=== PATIENT | male | born 1950 | race Caucasian/White ===

== ENCOUNTER 2018-12-28 16:45 | Outpatient (RCR) | payer MEDICARE, OTHER, SELFPAY ==
--- NOTE | 2018-12-16 18:39 | PT.OIE ---
Current Diagnoses Unilateral primary osteoarthritis, right knee (12/16/18) Unspecified internal derangement of left knee (12/16/18) Pain in right knee (12/16/18) Stiffness of right knee, not elsewhere classified (12/16/18) Provider Visit Care Team Role Provider Type Suresh Virkzachary Primary Care Provider Non-Staff Specialty: Internal Medicine Address: [address] [place] [address], [address], [place], [address] Fax: Email: Raymond Lima MD Attending Provider Non-Staff Specialty: Orthopedics Address: [address] [place] [address], [id number] Email: Physical Therapy Initial Evaluation PT-OP-A Visit Information Start: 12/16/18 18:08 Freq: Status: Active Protocol: Document 12/16/18 16:45 DCW (Rec: 12/16/18 18:36 DCW [id number]) Out-Patient Physical Therapy Visit Information Visit Information Visit Type Initial Evaluation Visit Start Time 16:45 Visit Stop Time 17:45 Total Visit Minutes 60 Visit Number 1 Number of NURSE AIDE Visits 0 Evaluation Information Evaluation Date 12/16/18 PT-OP-B Current Condition Start: 12/16/18 18:08 Freq: Status: Active Protocol: Document 12/16/18 16:45 DCW (Rec: 12/16/18 18:36 DCW [id number]) Current Condition History of Current Condition Onset Date 12/10/18 Current Complaints Right knee stiffness and pain s/p R TKA History of Current Condition Pt is a 68 year old male presenting one week s/p R TKA secondary to OA with failure of conservative treatment. Additionally, pt reports his left knee was scoped, but he is currently having no ongoing issues with his left knee, and reports it feels better than it has in years. Pt also admits to a history of low back pain secondary to a defect resulting in an L5-S1 Spondylolisthesis. Following surgery, pt admits he has not had a great deal of pain, averaging about a 3/10. Has been walking with a FWW, displaying an antalgic right gait pattern. Prior Treatments and Tests R TKA L Arthroscopic Treatment Goals Patient/Caregiver Goals Pt would like to get back to my normal daily life, which includes hiking, golfing, and fishing. Prior Functional Status Baseline Function- ADL's Independent Baseline Function- Mobility Independent Current Functional Impairments (Reported) Functional Limitations- ADL's Unable to participate in normal activities such as hiking, fishing, and golf. Functional Limitations- Mobility/Gait Ambulates using FWW with right antalgic gait pattern PT-OP-C Subjective Start: 12/16/18 18:08 Freq: Status: Active Protocol: Document 12/16/18 16:45 DCW (Rec: 12/16/18 18:36 DCW [id number]) Patient Questionnaires Lower Extremity Functional Scale LEFS Score 12/80 = 15% LEFS Impairment 80 to 99% Impaired (Score 1-16 ) OP-PT Pain Assessment Pain Assessment Grid Paper Pain Assessment Grid Completed Yes Location Right Knee Intensity 3 Scale Used Numeric (1 - 10) Description Aching Pressure Tightness Throbbing Frequency Intermittent Pain Alleviating Factors Cold PT-OP-F Manual Assessment Start: 12/16/18 18:08 Freq: Status: Active Protocol: Document 12/16/18 16:45 DCW (Rec: 12/16/18 18:36 DCW [id number]) Manual Assessments Soft Tissue Assessment Soft Tissue Mobility Assessment Edema/Joint effusion along right knee limiting mobility PT-OP-G Mobility & Gait Start: 12/16/18 18:08 Freq: Status: Active Protocol: Document 12/16/18 16:45 DCW (Rec: 12/16/18 18:36 DCW [id number]) OP Gait Assessment Gait Gait Assistance Required: Independent Assistive Devices Assistive Device Front Wheeled Walker Gait Deviations General Gait Pattern Antalgic Decreased Stride Length Factors Limiting Gait Function Factors Limiting Gait Function Limited Range of Motion Pain PT-OP-J Posture/Palpation/Skin Start: 12/16/18 18:36 Freq: Status: Active Protocol: Document 12/16/18 16:45 DCW (Rec: 12/16/18 18:39 DCW [id number]) Skin Assessment Circumference Measurement 10 cm Inferior Location 10 cm inferior to right joint line Measurement (Centimeters) 41.3 Comments L 38.7 cm 10 cm Superior Location 10 cm superior to right joint line Measurement (Centimeters) 49.0 Comments L 43.5 cm Joint Line Location R knee joint line Measurement (Centimeters) 47.1 Comments L joint line 41.8 cm PT-OP-K Range of Motion Start: 12/16/18 18:08 Freq: Status: Active Protocol: Document 12/16/18 16:45 DCW (Rec: 12/16/18 18:36 DCW [id number]) Knee Goniometric Range of Motion Knee Measured in Degrees Right Patient Position Supine Flexion Active (degrees) 82 Flexion Passive (degrees) 84 Extension Active (degrees) 8 Extension Passive (degrees) 6 Left Patient Position Supine Flexion Active (degrees) 120 Flexion Passive (degrees) 120 Extension Active (degrees) 5 Extension Passive (degrees) 5 Knee ROM Limitations Knee ROM Limitations Soft Tissue Tightness Bony Restriction Muscle Weakness Pain Swelling PT-OP-M Strength Start: 12/16/18 18:08 Freq: Status: Active Protocol: Document 12/16/18 16:45 DCW (Rec: 12/16/18 18:36 DCW [id number]) Knee Strength Knee Manual Muscle Testing Right Flexion (S2) 4+ Good+ Extension (L3) 4 Good Left Flexion (S2) 5 Normal Extension (L3) 5 Normal PT-OP-Q Treatments Start: 12/16/18 18:08 Freq: Status: Active Protocol: Document 12/16/18 16:45 DCW (Rec: 12/16/18 18:36 DCW [id number]) Cardio Equipment Recumbent Bicycle Duration (Minutes) 8 Resistance 0 Seat Position 14 Other Unable to perform full rotation Therapeutic Exercises Sitting Exercises Knee extension stretch Sitting Exercise Name Knee extension stretch Side right PT-OP-R Modalities Start: 12/16/18 18:08 Freq: Status: Active Protocol: Document 12/16/18 16:45 DCW (Rec: 12/16/18 18:36 DCW [id number]) Electric Stimulation Electric Stimulation Interferential Current (IFC) Body Location R knee Duration (Minutes) 10 Cycle Continuous Patient Position Sitting PT-OP-T Assessment and Plan Start: 12/16/18 18:08 Freq: Status: Active Protocol: Document 12/16/18 16:45 DCW (Rec: 12/16/18 18:36 DCW [id number]) Physical Therapy Assessment Rehab Potential Rehabilitation Potential Excellent Evaluation Complexity Number of Personal Factors/Comorbidities 1-2 Number of Body Systems Impaired 1-2 Clinical Presentation at Evaluation Stable Impairments Impairments Edema Functional Activities Functional Mobility Gait Pain ROM Soft Tissue Mobility Strength Other Concerns Barriers to Rehabilitation Low back pain/ Spondylolisthesis, HTN, DM II Goals Four Impairment Joint Effusion Fci Goal (LTG) Right circumfrential measurements equal to left LTG Duration 02/13/19 Three Impairment Limited ROM Short Term Goal (STG) Pt passive and active R knee extension to 0? STG Duration 01/13/19 Fci Goal (LTG) Pt passive and active R knee flexion to 120? LTG Duration 02/13/19 Two Impairment Pt unable to participate in normal activities Certified Breastfeeding Educator Goal (LTG) Pt to return to golf with no increased pain LTG Duration 02/13/19 One Impairment Pt does not have an appropriate home exercise program Short Term Goal (STG) Pt to be independent and compliant with an appropriate HEP STG Duration 01/13/19 Assessment Summary Assessment Pt presents as generally expected one week s/p R TKA, displays joint effusion, stiffness, mild pain and weakness. Pt very interested in rehab process, and motivated to put maximal effort into rehabilitation. Rehab may be limited by pt's history of L5-S1 Spondylolisthesis, recent L knee arthroscopy, and history of HTN and DM II, however he will likely have a fairly standard post-TKA rehab course . Pt currently demonstrates excellent extension, only lacking 8? from neutral, but is slightly behind expected flexion, at 82? active. Physical Therapy Plan Frequency and Duration Frequency of Treatment 2x/Week Duration of Treatment 12 weeks Plan of Care Start Date 12/16/18 Plan of Care End Date 03/10/19 Therapeutic Interventions Therapeutic Interventions Aquatic Therapy Gait Training Home Exercise Program Joint Mobilizations Manual Therapy Neuromuscular Re-education Patient/Caregiver Education Self-Care/Home Management Soft Tissue Mobilization Taping Therapeutic Activities Therapeutic Exercises Modalities Cold Pack/Ice Massage Electric Stimulation Hot Packs Ultrasound Next Visit Focus/Plan Next Note Type Treatment Note Next Visit Plan ROM/Flexibility, Post-op TherEx
--- NOTE | 2018-12-16 18:40 | PT.OPPOC ---
Current Diagnoses Unilateral primary osteoarthritis, right knee (12/16/18) Unspecified internal derangement of left knee (12/16/18) Pain in right knee (12/16/18) Stiffness of right knee, not elsewhere classified (12/16/18) Provider Visit Care Team Role Provider Type Suresheboni Virkzachary Primary Care Provider Non-Staff Specialty: Internal Medicine Address: [address] [place] [address], [address], [place], [address] Fax: Email: Raymond Lima MD Attending Provider Non-Staff Specialty: Orthopedics Address: [address] [place] [address] [place], [address] Email: Plan Of Care PT-OP-T Assessment and Plan Start: 12/16/18 18:08 Freq: Status: Active Protocol: Document 12/16/18 16:45 DCW (Rec: 12/16/18 18:36 DCW [id number]) Physical Therapy Assessment Rehab Potential Rehabilitation Potential Excellent Evaluation Complexity Number of Personal Factors/Comorbidities 1-2 Number of Body Systems Impaired 1-2 Clinical Presentation at Evaluation Stable Impairments Impairments Edema Functional Activities Functional Mobility Gait Pain ROM Soft Tissue Mobility Strength Other Concerns Barriers to Rehabilitation Low back pain/ Spondylolisthesis, HTN, DM II Goals Four Impairment Joint Effusion Affiliate Marketing Coordinator Goal (LTG) Right circumfrential measurements equal to left LTG Duration 02/13/19 Three Impairment Limited ROM Short Term Goal (STG) Pt passive and active R knee extension to 0? STG Duration 01/13/19 Affiliate Marketing Coordinator Goal (LTG) Pt passive and active R knee flexion to 120? LTG Duration 02/13/19 Two Impairment Pt unable to participate in normal activities Long-Term Goal (LTG) Pt to return to golf with no increased pain LTG Duration 02/13/19 One Impairment Pt does not have an appropriate home exercise program Short Term Goal (STG) Pt to be independent and compliant with an appropriate HEP STG Duration 01/13/19 Assessment Summary Assessment Pt presents as generally expected one week s/p R TKA, displays joint effusion, stiffness, mild pain and weakness. Pt very interested in rehab process, and motivated to put maximal effort into rehabilitation. Rehab may be limited by pt's history of L5-S1 Spondylolisthesis, recent L knee arthroscopy, and history of HTN and DM II, however he will likely have a fairly standard post-TKA rehab course . Pt currently demonstrates excellent extension, only lacking 8? from neutral, but is slightly behind expected flexion, at 82? active. Physical Therapy Plan Frequency and Duration Frequency of Treatment 2x/Week Duration of Treatment 12 weeks Plan of Care Start Date 12/16/18 Plan of Care End Date 03/10/19 Therapeutic Interventions Therapeutic Interventions Aquatic Therapy Gait Training Home Exercise Program Joint Mobilizations Manual Therapy Neuromuscular Re-education Patient/Caregiver Education Self-Care/Home Management Soft Tissue Mobilization Taping Therapeutic Activities Therapeutic Exercises Modalities Cold Pack/Ice Massage Electric Stimulation Hot Packs Ultrasound Next Visit Focus/Plan Next Note Type Treatment Note Next Visit Plan ROM/Flexibility, Post-op TherEx Plan of Care Dates Plan of Care Start Date 12/16/18 Plan of Care End Date 03/10/19 Please Sign and Return: I have reviewed this Plan of Care and certify that the skilled therapy services above are required to meet the patient?s needs. Physician Signature Date Printed Name and Credentials Clinical Instructor Signature Printed Name and Credentials
--- NOTE | 2018-12-18 11:41 | PT.OTN ---
Current Diagnoses Unilateral primary osteoarthritis, right knee (12/18/18) Unspecified internal derangement of left knee (12/18/18) Physical Therapy Treatment Note PT-OP-A Visit Information Start: 12/16/18 18:08 Freq: Status: Active Protocol: Document 12/18/18 11:22 SA (Rec: 12/18/18 11:41 SA [id number]) Out-Patient Physical Therapy Visit Information Visit Information Visit Type Treatment Note Visit Start Time 09:55 Visit Stop Time 10:40 Total Visit Minutes 45 Visit Number 2 Number of INTERPRETER Visits 1 PT-OP-B Current Condition Start: 12/16/18 18:08 Freq: Status: Active Protocol: Document 12/16/18 16:45 DCW (Rec: 12/16/18 18:36 DCW [id number]) Current Condition History of Current Condition Onset Date 12/10/18 Current Complaints Right knee stiffness and pain s/p R TKA History of Current Condition Pt is a 68 year old male presenting one week s/p R TKA secondary to OA with failure of conservative treatment. Additionally, pt reports his left knee was scoped, but he is currently having no ongoing issues with his left knee, and reports it feels better than it has in years. Pt also admits to a history of low back pain secondary to a defect resulting in an L5-S1 Spondylolisthesis. Following surgery, pt admits he has not had a great deal of pain, averaging about a 3/10. Has been walking with a FWW, displaying an antalgic right gait pattern. Prior Treatments and Tests R TKA L Arthroscopic Treatment Goals Patient/Caregiver Goals Pt would like to get back to my normal daily life, which includes hiking, golfing, and fishing. Prior Functional Status Baseline Function- ADL's Independent Baseline Function- Mobility Independent Current Functional Impairments (Reported) Functional Limitations- ADL's Unable to participate in normal activities such as hiking, fishing, and golf. Functional Limitations- Mobility/Gait Ambulates using FWW with right antalgic gait pattern PT-OP-C Subjective Start: 12/16/18 18:08 Freq: Status: Active Protocol: Document 12/18/18 11:22 SA (Rec: 12/18/18 11:41 SA [id number]) OP-PT Subjective Patient Comments Patient Comments Pt reports low pain levels and only taking Tylonol for pain. Doing post op exercises at home with good tolerance. Using FWW intermittently and trying to decrease use. PT-OP-F Manual Assessment Start: 12/16/18 18:08 Freq: Status: Active Protocol: Document 12/16/18 16:45 DCW (Rec: 12/16/18 18:36 DCW [id number]) Manual Assessments Soft Tissue Assessment Soft Tissue Mobility Assessment Edema/Joint effusion along right knee limiting mobility PT-OP-G Mobility & Gait Start: 12/16/18 18:08 Freq: Status: Active Protocol: Document 12/16/18 16:45 DCW (Rec: 12/16/18 18:36 DCW [id number]) OP Gait Assessment Gait Gait Assistance Required: Independent Assistive Devices Assistive Device Front Wheeled Walker Gait Deviations General Gait Pattern Antalgic Decreased Stride Length Factors Limiting Gait Function Factors Limiting Gait Function Limited Range of Motion Pain PT-OP-J Posture/Palpation/Skin Start: 12/16/18 18:36 Freq: Status: Active Protocol: Document 12/16/18 16:45 DCW (Rec: 12/16/18 18:39 DCW [id number]) Skin Assessment Circumference Measurement 10 cm Inferior Location 10 cm inferior to right joint line Measurement (Centimeters) 41.3 Comments L 38.7 cm 10 cm Superior Location 10 cm superior to right joint line Measurement (Centimeters) 49.0 Comments L 43.5 cm Joint Line Location R knee joint line Measurement (Centimeters) 47.1 Comments L joint line 41.8 cm PT-OP-K Range of Motion Start: 12/16/18 18:08 Freq: Status: Active Protocol: Document 12/16/18 16:45 DCW (Rec: 12/16/18 18:36 DCW [id number]) Knee Goniometric Range of Motion Knee Measured in Degrees Right Patient Position Supine Flexion Active (degrees) 82 Flexion Passive (degrees) 84 Extension Active (degrees) 8 Extension Passive (degrees) 6 Left Patient Position Supine Flexion Active (degrees) 120 Flexion Passive (degrees) 120 Extension Active (degrees) 5 Extension Passive (degrees) 5 Knee ROM Limitations Knee ROM Limitations Soft Tissue Tightness Bony Restriction Muscle Weakness Pain Swelling PT-OP-M Strength Start: 12/16/18 18:08 Freq: Status: Active Protocol: Document 12/16/18 16:45 DCW (Rec: 12/16/18 18:36 DCW [id number]) Knee Strength Knee Manual Muscle Testing Right Flexion (S2) 4+ Good+ Extension (L3) 4 Good Left Flexion (S2) 5 Normal Extension (L3) 5 Normal PT-OP-Q Treatments Start: 12/16/18 18:08 Freq: Status: Active Protocol: Document 12/18/18 11:22 SA (Rec: 12/18/18 11:41 [email or web address]) Cardio Equipment Recumbent Stepper (Sci-Fit) Duration (Minutes) 7 Resistance 4 Other warm up Therapeutic Exercises Supine Exercises SAQs Side right Resistance 0 Equipment Used foam roll Reps/Minutes 5 x 15 Isometric Heel digs Side right Reps/Minutes 5 x 12 Sitting Exercises calf stretch with belt Side right Reps/Minutes 30 x 3 Seated knee flexion stretch Side right Reps/Minutes 30 x 4 Knee extension stretch Sitting Exercise Name Knee extension stretch Side right Reps/Minutes 1' x 2 Manual Therapy Treatment Soft Tissue Mobilization R knee/edema management Body Location R knee Mobilization Type Myofascial Release Rolling Strumming Intensity/Depth Moderate Body Position Supine PT-OP-R Modalities Start: 12/16/18 18:08 Freq: Status: Active Protocol: Document 12/18/18 11:22 SA (Rec: 12/18/18 11:41 [email or web address]) Electric Stimulation Electric Stimulation Interferential Current (IFC) Body Location R knee Duration (Minutes) 15 Cycle Continuous Patient Position Sitting Combined With Heat/Cold Cold Pack PT-OP-T Assessment and Plan Start: 12/16/18 18:08 Freq: Status: Active Protocol: Document 12/18/18 11:22 SA (Rec: 12/18/18 11:41 [id number]) Physical Therapy Assessment Assessment Summary Assessment Pt given Heel digs and SAQs for HEP, he is already doing quad sets and knee flexion stretching at home. Progressing with gait and using FWW less. Physical Therapy Plan Next Visit Focus/Plan Next Note Type Treatment Note Next Visit Plan Progress ROM and strengthening ar tolerated.
--- NOTE | 2018-12-23 17:36 | PT.OTN ---
Current Diagnoses Unilateral primary osteoarthritis, right knee (12/23/18) Unspecified internal derangement of left knee (12/23/18) Physical Therapy Treatment Note PT-OP-A Visit Information Start: 12/16/18 18:08 Freq: Status: Active Protocol: Document 12/23/18 17:25 [facility] (Rec: 12/23/18 17:35 [facility] [id number]) Out-Patient Physical Therapy Visit Information Visit Information Visit Type Treatment Note Visit Start Time 13:45 Visit Stop Time 14:35 Total Visit Minutes 45 Visit Number 3 Number of ANALYTICAL LEAD Visits 0 PT-OP-B Current Condition Start: 12/16/18 18:08 Freq: Status: Active Protocol: Document 12/16/18 16:45 DCW (Rec: 12/16/18 18:36 DCW [id number]) Current Condition History of Current Condition Onset Date 12/10/18 Current Complaints Right knee stiffness and pain s/p R TKA History of Current Condition Pt is a 68 year old male presenting one week s/p R TKA secondary to OA with failure of conservative treatment. Additionally, pt reports his left knee was scoped, but he is currently having no ongoing issues with his left knee, and reports it feels better than it has in years. Pt also admits to a history of low back pain secondary to a defect resulting in an L5-S1 Spondylolisthesis. Following surgery, pt admits he has not had a great deal of pain, averaging about a 3/10. Has been walking with a FWW, displaying an antalgic right gait pattern. Prior Treatments and Tests R TKA L Arthroscopic Treatment Goals Patient/Caregiver Goals Pt would like to get back to my normal daily life, which includes hiking, golfing, and fishing. Prior Functional Status Baseline Function- ADL's Independent Baseline Function- Mobility Independent Current Functional Impairments (Reported) Functional Limitations- ADL's Unable to participate in normal activities such as hiking, fishing, and golf. Functional Limitations- Mobility/Gait Ambulates using FWW with right antalgic gait pattern PT-OP-C Subjective Start: 12/16/18 18:08 Freq: Status: Active Protocol: Document 12/23/18 17:25 [facility] (Rec: 12/23/18 17:35 [facility] [id number]) OP-PT Subjective Patient Comments Patient Comments Pt reports he isn't using AD at this time. He wants to go over his HEP. PT-OP-F Manual Assessment Start: 12/16/18 18:08 Freq: Status: Active Protocol: Document 12/16/18 16:45 DCW (Rec: 12/16/18 18:36 DCW [id number]) Manual Assessments Soft Tissue Assessment Soft Tissue Mobility Assessment Edema/Joint effusion along right knee limiting mobility PT-OP-G Mobility & Gait Start: 12/16/18 18:08 Freq: Status: Active Protocol: Document 12/16/18 16:45 DCW (Rec: 12/16/18 18:36 DCW [id number]) OP Gait Assessment Gait Gait Assistance Required: Independent Assistive Devices Assistive Device Front Wheeled Walker Gait Deviations General Gait Pattern Antalgic Decreased Stride Length Factors Limiting Gait Function Factors Limiting Gait Function Limited Range of Motion Pain PT-OP-J Posture/Palpation/Skin Start: 12/16/18 18:36 Freq: Status: Active Protocol: Document 12/16/18 16:45 DCW (Rec: 12/16/18 18:39 DCW [id number]) Skin Assessment Circumference Measurement 10 cm Inferior Location 10 cm inferior to right joint line Measurement (Centimeters) 41.3 Comments L 38.7 cm 10 cm Superior Location 10 cm superior to right joint line Measurement (Centimeters) 49.0 Comments L 43.5 cm Joint Line Location R knee joint line Measurement (Centimeters) 47.1 Comments L joint line 41.8 cm PT-OP-K Range of Motion Start: 12/16/18 18:08 Freq: Status: Active Protocol: Document 12/16/18 16:45 DCW (Rec: 12/16/18 18:36 DCW [id number]) Knee Goniometric Range of Motion Knee Measured in Degrees Right Patient Position Supine Flexion Active (degrees) 82 Flexion Passive (degrees) 84 Extension Active (degrees) 8 Extension Passive (degrees) 6 Left Patient Position Supine Flexion Active (degrees) 120 Flexion Passive (degrees) 120 Extension Active (degrees) 5 Extension Passive (degrees) 5 Knee ROM Limitations Knee ROM Limitations Soft Tissue Tightness Bony Restriction Muscle Weakness Pain Swelling PT-OP-M Strength Start: 12/16/18 18:08 Freq: Status: Active Protocol: Document 12/16/18 16:45 DCW (Rec: 12/16/18 18:36 DCW [id number]) Knee Strength Knee Manual Muscle Testing Right Flexion (S2) 4+ Good+ Extension (L3) 4 Good Left Flexion (S2) 5 Normal Extension (L3) 5 Normal PT-OP-Q Treatments Start: 12/16/18 18:08 Freq: Status: Active Protocol: Document 12/23/18 17:25 [facility] (Rec: 12/23/18 17:35 [facility] [id number]) Gym Equipment Shuttle Recovery Unilateral Squats Resistance 75 lbs Shuttle Recovery Platform Stable Reps/Time 30 Bilateral Squats Resistance 100lb; 125 lb Shuttle Recovery Platform Stable Reps/Time 2x10 then 2x10 w/inc wt Therapeutic Exercises Supine Exercises HS stretch Supine Exercise Name HS & heel cord stretch Reps/Minutes 30 sec Standing Exercises TKE Standing Exercise Name TKE Side bilateral Equipment Used L3 Reps/Minutes 20 sit<>stand Standing Exercise Name sit<>stand Reps/Minutes 10 Comments no hands from mat Manual Therapy Treatment Soft Tissue Mobilization quads/ITB Body Location quads/ITB Mobilization Type Rolling Intensity/Depth Moderate Body Position Supine Manual Techniques HS stretching Type c/r for knee ext Self-Care/Home Management Treatment Education Other Education edu on home use of TENs unit PT-OP-R Modalities Start: 12/16/18 18:08 Freq: Status: Active Protocol: Document 12/18/18 11:22 [facility] (Rec: 12/18/18 11:41 [facility] [id number]) Electric Stimulation Electric Stimulation Interferential Current (IFC) Body Location R knee Duration (Minutes) 15 Cycle Continuous Patient Position Sitting Combined With Heat/Cold Cold Pack PT-OP-T Assessment and Plan Start: 12/16/18 18:08 Freq: Status: Active Protocol: Document 12/23/18 17:25 [facility] (Rec: 12/23/18 17:35 [facility] [email or web address]) Physical Therapy Assessment Goals Four Impairment Joint Effusion Manager Android Goal (LTG) Right circumfrential measurements equal to left LTG Duration 02/13/19 Three Impairment Limited ROM Short Term Goal (STG) Pt passive and active R knee extension to 0? STG Duration 01/13/19 Manager Android Goal (LTG) Pt passive and active R knee flexion to 120? LTG Duration 02/13/19 Two Impairment Pt unable to participate in normal activities Manager Android Goal (LTG) Pt to return to golf with no increased pain LTG Duration 02/13/19 One Impairment Pt does not have an appropriate home exercise program Short Term Goal (STG) Pt to be independent and compliant with an appropriate HEP STG Duration 01/13/19 Assessment Summary Assessment Pt did well with advance in standing and resisted strengthening exercises. Able to inc wt as he did leg press and he found he could do more without inc pain or difficulty . He does have difficutly with end range ext and with his gait mechanics at this time likely limited by core control . Physical Therapy Plan Frequency and Duration Frequency of Treatment 2x/Week Duration of Treatment 12 weeks Plan of Care Start Date 12/16/18 Plan of Care End Date 03/10/19 Next Visit Focus/Plan Next Note Type Treatment Note Next Visit Plan Advance LE strengthening exercise with edu on core brace.
--- NOTE | 2018-12-28 17:37 | PT.OTN ---
Current Diagnoses Unilateral primary osteoarthritis, right knee (12/28/18) Unspecified internal derangement of left knee (12/28/18) Physical Therapy Treatment Note PT-OP-A Visit Information Start: 12/16/18 18:08 Freq: Status: Active Protocol: Document 12/28/18 16:45 DCW (Rec: 12/28/18 17:36 DCW [id number]) Out-Patient Physical Therapy Visit Information Visit Information Visit Type Treatment Note Visit Start Time 16:45 Visit Stop Time 17:30 Total Visit Minutes 45 Visit Number 4 Number of ANALYSIS ENGINEER Visits 0 Evaluation Information Evaluation Date 12/16/18 PT-OP-B Current Condition Start: 12/16/18 18:08 Freq: Status: Active Protocol: Document 12/16/18 16:45 DCW (Rec: 12/16/18 18:36 DCW [id number]) Current Condition History of Current Condition Onset Date 12/10/18 Current Complaints Right knee stiffness and pain s/p R TKA History of Current Condition Pt is a 68 year old male presenting one week s/p R TKA secondary to OA with failure of conservative treatment. Additionally, pt reports his left knee was scoped, but he is currently having no ongoing issues with his left knee, and reports it feels better than it has in years. Pt also admits to a history of low back pain secondary to a defect resulting in an L5-S1 Spondylolisthesis. Following surgery, pt admits he has not had a great deal of pain, averaging about a 3/10. Has been walking with a FWW, displaying an antalgic right gait pattern. Prior Treatments and Tests R TKA L Arthroscopic Treatment Goals Patient/Caregiver Goals Pt would like to get back to my normal daily life, which includes hiking, golfing, and fishing. Prior Functional Status Baseline Function- ADL's Independent Baseline Function- Mobility Independent Current Functional Impairments (Reported) Functional Limitations- ADL's Unable to participate in normal activities such as hiking, fishing, and golf. Functional Limitations- Mobility/Gait Ambulates using FWW with right antalgic gait pattern PT-OP-C Subjective Start: 12/16/18 18:08 Freq: Status: Active Protocol: Document 12/28/18 16:45 DCW (Rec: 12/28/18 17:36 DCW [id number]) OP-PT Subjective Patient Comments Patient Comments Pt reports he has been somewhat restricted with his walking due to snow on the ground, but is doing better now. Reports he would say he is pain-free, but still some soreness. PT-OP-F Manual Assessment Start: 12/16/18 18:08 Freq: Status: Active Protocol: Document 12/16/18 16:45 DCW (Rec: 12/16/18 18:36 DCW [id number]) Manual Assessments Soft Tissue Assessment Soft Tissue Mobility Assessment Edema/Joint effusion along right knee limiting mobility PT-OP-G Mobility & Gait Start: 12/16/18 18:08 Freq: Status: Active Protocol: Document 12/16/18 16:45 DCW (Rec: 12/16/18 18:36 DCW [id number]) OP Gait Assessment Gait Gait Assistance Required: Independent Assistive Devices Assistive Device Front Wheeled Walker Gait Deviations General Gait Pattern Antalgic Decreased Stride Length Factors Limiting Gait Function Factors Limiting Gait Function Limited Range of Motion Pain PT-OP-J Posture/Palpation/Skin Start: 12/16/18 18:36 Freq: Status: Active Protocol: Document 12/16/18 16:45 DCW (Rec: 12/16/18 18:39 DCW [id number]) Skin Assessment Circumference Measurement 10 cm Inferior Location 10 cm inferior to right joint line Measurement (Centimeters) 41.3 Comments L 38.7 cm 10 cm Superior Location 10 cm superior to right joint line Measurement (Centimeters) 49.0 Comments L 43.5 cm Joint Line Location R knee joint line Measurement (Centimeters) 47.1 Comments L joint line 41.8 cm PT-OP-K Range of Motion Start: 12/16/18 18:08 Freq: Status: Active Protocol: Document 12/16/18 16:45 DCW (Rec: 12/16/18 18:36 DCW [id number]) Knee Goniometric Range of Motion Knee Measured in Degrees Right Patient Position Supine Flexion Active (degrees) 82 Flexion Passive (degrees) 84 Extension Active (degrees) 8 Extension Passive (degrees) 6 Left Patient Position Supine Flexion Active (degrees) 120 Flexion Passive (degrees) 120 Extension Active (degrees) 5 Extension Passive (degrees) 5 Knee ROM Limitations Knee ROM Limitations Soft Tissue Tightness Bony Restriction Muscle Weakness Pain Swelling PT-OP-M Strength Start: 12/16/18 18:08 Freq: Status: Active Protocol: Document 12/16/18 16:45 DCW (Rec: 12/16/18 18:36 DCW [id number]) Knee Strength Knee Manual Muscle Testing Right Flexion (S2) 4+ Good+ Extension (L3) 4 Good Left Flexion (S2) 5 Normal Extension (L3) 5 Normal PT-OP-Q Treatments Start: 12/16/18 18:08 Freq: Status: Active Protocol: Document 12/28/18 16:45 DCW (Rec: 12/28/18 17:36 DCW [id number]) Cardio Equipment Recumbent Bicycle Duration (Minutes) 6 Resistance 10 Seat Position 12 Gym Equipment Shuttle Recovery Unilateral Squats Resistance 100 lbs Shuttle Recovery Platform Stable Reps/Time 30 Bilateral Squats Resistance 187 lbs Shuttle Recovery Platform Stable Therapeutic Exercises Supine Exercises Bridging Supine Exercise Name Supine Bridging Standing Exercises Step flexion stretch Standing Exercise Name Step stretch - Flexion Lunge Standing Exercise Name Lunge onto BOSU Side right Equipment Used Blue BOSU TKE Standing Exercise Name TKE Side bilateral Equipment Used L3 Reps/Minutes 20 Manual Therapy Treatment Joint Mobilizations Knee Joint Right Direction P->A Grade III Body Position Hooklying PT-OP-R Modalities Start: 12/16/18 18:08 Freq: Status: Active Protocol: Document 12/18/18 11:22 [facility] (Rec: 12/18/18 11:41 [facility] [id number]) Electric Stimulation Electric Stimulation Interferential Current (IFC) Body Location R knee Duration (Minutes) 15 Cycle Continuous Patient Position Sitting Combined With Heat/Cold Cold Pack PT-OP-T Assessment and Plan Start: 12/16/18 18:08 Freq: Status: Active Protocol: Document 12/28/18 16:45 DCW (Rec: 12/28/18 17:36 DCW [id number]) Physical Therapy Assessment Impairments Impairments Edema Functional Activities Functional Mobility Gait Pain ROM Soft Tissue Mobility Strength Goals Four Impairment Joint Effusion Fruit And Vegetable Classer Goal (LTG) Right circumfrential measurements equal to left LTG Duration 02/13/19 Three Impairment Limited ROM Short Term Goal (STG) Pt passive and active R knee extension to 0? STG Duration 01/13/19 Usp Goal (LTG) Pt passive and active R knee flexion to 120? LTG Duration 02/13/19 Two Impairment Pt unable to participate in normal activities Fruit And Vegetable Classer Goal (LTG) Pt to return to golf with no increased pain LTG Duration 02/13/19 One Impairment Pt does not have an appropriate home exercise program Short Term Goal (STG) Pt to be independent and compliant with an appropriate HEP STG Duration 01/13/19 Assessment Summary Assessment Pt advancing very quickly, requires some training on body mechanics/core stability to improve functional mobility, but knee ROM and strength is rapidly improving. Physical Therapy Plan Frequency and Duration Frequency of Treatment 2x/Week Duration of Treatment 12 weeks Plan of Care Start Date 12/16/18 Plan of Care End Date 03/10/19 Therapeutic Interventions Therapeutic Interventions Aquatic Therapy Gait Training Home Exercise Program Joint Mobilizations Manual Therapy Neuromuscular Re-education Patient/Caregiver Education Self-Care/Home Management Soft Tissue Mobilization Taping Therapeutic Activities Therapeutic Exercises Modalities Cold Pack/Ice Massage Electric Stimulation Hot Packs Ultrasound Next Visit Focus/Plan Next Note Type Treatment Note Next Visit Plan Advance LE strengthening exercise with edu on core brace.
--- NOTE | 2019-03-02 12:27 | PT.OPDS ---
Current Diagnoses Unilateral primary osteoarthritis, right knee (12/28/18) Unspecified internal derangement of left knee (12/28/18) Provider Visit Care Team Role Provider Type Suresh Lara Primary Care Provider Non-Staff Specialty: Internal Medicine Address: [facility], [address], [place], [address] Fax: Email: Raymond Lima MD Attending Provider Non-Staff Specialty: Orthopedics Address: [address] [place] [address], [place], [address] Email: Visit Number Visit Number 4 Discharge Summary PT-OP-B Current Condition Start: 12/16/18 18:08 Freq: Status: Active Protocol: Document 12/16/18 16:45 DCW (Rec: 12/16/18 18:36 DCW [id number]) Current Condition History of Current Condition Onset Date 12/10/18 Current Complaints Right knee stiffness and pain s/p R TKA History of Current Condition Pt is a 68 year old male presenting one week s/p R TKA secondary to OA with failure of conservative treatment. Additionally, pt reports his left knee was scoped, but he is currently having no ongoing issues with his left knee, and reports it feels better than it has in years. Pt also admits to a history of low back pain secondary to a defect resulting in an L5-S1 Spondylolisthesis. Following surgery, pt admits he has not had a great deal of pain, averaging about a 3/10. Has been walking with a FWW, displaying an antalgic right gait pattern. Prior Treatments and Tests R TKA L Arthroscopic Treatment Goals Patient/Caregiver Goals Pt would like to get back to my normal daily life, which includes hiking, golfing, and fishing. Prior Functional Status Baseline Function- ADL's Independent Baseline Function- Mobility Independent Current Functional Impairments (Reported) Functional Limitations- ADL's Unable to participate in normal activities such as hiking, fishing, and golf. Functional Limitations- Mobility/Gait Ambulates using FWW with right antalgic gait pattern PT-OP-C Subjective Start: 12/16/18 18:08 Freq: Status: Active Protocol: Document 12/28/18 16:45 DCW (Rec: 12/28/18 17:36 DCW [id number]) OP-PT Subjective Patient Comments Patient Comments Pt reports he has been somewhat restricted with his walking due to snow on the ground, but is doing better now. Reports he would say he is pain-free, but still some soreness. PT-OP-F Manual Assessment Start: 12/16/18 18:08 Freq: Status: Active Protocol: Document 12/16/18 16:45 DCW (Rec: 12/16/18 18:36 DCW [id number]) Manual Assessments Soft Tissue Assessment Soft Tissue Mobility Assessment Edema/Joint effusion along right knee limiting mobility PT-OP-G Mobility & Gait Start: 12/16/18 18:08 Freq: Status: Active Protocol: Document 12/16/18 16:45 DCW (Rec: 12/16/18 18:36 DCW [id number]) OP Gait Assessment Gait Gait Assistance Required: Independent Assistive Devices Assistive Device Front Wheeled Walker Gait Deviations General Gait Pattern Antalgic Decreased Stride Length Factors Limiting Gait Function Factors Limiting Gait Function Limited Range of Motion Pain PT-OP-J Posture/Palpation/Skin Start: 12/16/18 18:36 Freq: Status: Active Protocol: Document 12/16/18 16:45 DCW (Rec: 12/16/18 18:39 DCW [id number]) Skin Assessment Circumference Measurement 10 cm Inferior Location 10 cm inferior to right joint line Measurement (Centimeters) 41.3 Comments L 38.7 cm 10 cm Superior Location 10 cm superior to right joint line Measurement (Centimeters) 49.0 Comments L 43.5 cm Joint Line Location R knee joint line Measurement (Centimeters) 47.1 Comments L joint line 41.8 cm PT-OP-K Range of Motion Start: 12/16/18 18:08 Freq: Status: Active Protocol: Document 12/16/18 16:45 DCW (Rec: 12/16/18 18:36 DCW [id number]) Knee Goniometric Range of Motion Knee Measured in Degrees Right Patient Position Supine Flexion Active (degrees) 82 Flexion Passive (degrees) 84 Extension Active (degrees) 8 Extension Passive (degrees) 6 Left Patient Position Supine Flexion Active (degrees) 120 Flexion Passive (degrees) 120 Extension Active (degrees) 5 Extension Passive (degrees) 5 Knee ROM Limitations Knee ROM Limitations Soft Tissue Tightness Bony Restriction Muscle Weakness Pain Swelling PT-OP-M Strength Start: 12/16/18 18:08 Freq: Status: Active Protocol: Document 12/16/18 16:45 DCW (Rec: 12/16/18 18:36 DCW [id number]) Knee Strength Knee Manual Muscle Testing Right Flexion (S2) 4+ Good+ Extension (L3) 4 Good Left Flexion (S2) 5 Normal Extension (L3) 5 Normal PT-OP-T Assessment and Plan Start: 12/16/18 18:08 Freq: Status: Active Protocol: Document 03/02/19 12:26 DCW (Rec: 03/02/19 12:27 DCW [id number]) Physical Therapy Assessment Goals Four Impairment Joint Effusion Nursing Home Goal (LTG) Right circumfrential measurements equal to left LTG Duration 02/13/19 Three Impairment Limited ROM Short Term Goal (STG) Pt passive and active R knee extension to 0? STG Duration 01/13/19 Exchange Operator Goal (LTG) Pt passive and active R knee flexion to 120? LTG Duration 02/13/19 Two Impairment Pt unable to participate in normal activities Exchange Operator Goal (LTG) Pt to return to golf with no increased pain LTG Duration 02/13/19 One Impairment Pt does not have an appropriate home exercise program Short Term Goal (STG) Pt to be independent and compliant with an appropriate HEP STG Duration 01/13/19 Assessment Summary Assessment Pt had been doing very well, however canceled last remaining appointment with no reason given, did not schedule any further visits. Pt has now not been seen in more than two months, and will be discharged from skilled PT at this time. Physical Therapy Plan Discharge Physical Therapy Discharge Reasons No Longer Attending PT Next Visit Focus/Plan Next Note Type Discharge Summary
== END 2018-12-28 18:36 ==
LOC: PHYS 16:45
PROVIDERS: PCP Internal Medicine; Visit Provider Orthopaedic Surgery
DX: M17.11 Unilateral primary osteoarthritis, right knee (principal); M23.92 Unspecified internal derangement of left knee
CPT/HCPCS: 97014; 97110; 97140; 97161; 97535; G0283

== ENCOUNTER → 2020-08-22 08:34 | Outpatient (CLI) | payer MEDICARE, OTHER, SELFPAY ==
[2020-08-22 09:45] LABS: Hemoglobin A1C% w Est Avg Glu 5.9 % (4.0-6.0)
[2020-08-22 09:51] LABS: Alanine Aminotransferase 25 IU/L (<50); Albumin Globulin Ratio 1.6 (1.0-2.8); Alkaline Phosphatase 67 U/L (38-126); Aspartate Aminotransferase 30 IU/L (17-59); BUN Creatinine Ratio 18.8 (6-22); Bilirubin Total 0.8 mg/dL (0.2-1.3); Blood Urea Nitrogen 21 mg/dL (9-20); Calcium 8.9 mg/dL (8.4-10.2); Carbon Dioxide 26 mmol/L (22-32); Chloride 109 mmol/L (98-107); Estimated Glomerular Filt Rate > 60.0 mL/min (>60); Globulin 2.5 g/dL (1.7-4.1); Glucose 123 mg/dL (80-110); HEMOLYSIS < 15 (0-50); Potassium 4.3 mmol/L (3.4-5.1); Sodium 140 mmol/L (137-145); Total Protein 6.5 g/dL (6.3-8.2)
== END ==
PROVIDERS: PCP Internal Medicine; Referring Provider Internal Medicine; Visit Provider Internal Medicine
DX: E11.8 Type 2 diabetes mellitus with unspecified complications (principal); Z79.4 Long term (current) use of insulin
CPT/HCPCS: 36415; 80053; 83036

== ENCOUNTER → 2020-12-15 10:17 | Outpatient (CLI) | payer MEDICARE, OTHER, SELFPAY ==
[2020-12-15] MEDS: COVID-19 VACC #1, MRNA(MOD) 100 MCG/0.5 ML VIAL IM (10:23)
== END ==
PROVIDERS: PCP Internal Medicine; Visit Provider Internal Medicine
DX: Z23 Encounter for immunization (principal)
CPT/HCPCS: 0011A; 91301

== ENCOUNTER → 2021-01-11 12:42 | Outpatient (CLI) | payer MEDICARE, OTHER, SELFPAY ==
[2021-01-11] MEDS: COVID-19 VACC #2, MRNA(MOD) 100 MCG/0.5 ML VIAL IM (12:46)
== END ==
PROVIDERS: PCP Internal Medicine; Visit Provider Internal Medicine
DX: Z23 Encounter for immunization (principal)
CPT/HCPCS: 0012A; 91301

== ENCOUNTER → 2021-10-26 09:02 | Outpatient (CLI) | payer MEDICARE, OTHER, SELFPAY ==
[2021-10-26 11:11] LABS: Hemoglobin A1C% w Est Avg Glu 5.9 % (4.0-6.0)
== END ==
PROVIDERS: PCP Internal Medicine; Referring Provider Internal Medicine; Visit Provider Internal Medicine
DX: E11.9 Type 2 diabetes mellitus without complications (principal); E11.29 Type 2 diabetes mellitus with other diabetic kidney complication; R80.9 Proteinuria, unspecified; Z79.4 Long term (current) use of insulin
CPT/HCPCS: 36415; 83036

== ENCOUNTER → 2022-01-29 08:43 | Outpatient (CLI) | payer MEDICARE, OTHER, SELFPAY ==
[2022-01-29 09:50] LABS: Add Manual Diff / Slide Review NO; Basophils Absolute Auto 100 /uL (0-100); Eosinophils Absolute Auto 200 /uL (0-450); Eosinophils Percent Auto 4.7 % (2-4); Hematocrit 43.7 % (41-53); Hemoglobin 15.2 g/dL (13.5-17.5); Lymphocytes Absolute Auto 1300 /uL (1100-4500); Lymphocytes Percent Auto 25.5 % (25-40); Mean Corpuscular HGB Conc 34.8 % (30-36); Mean Corpuscular Hemoglobin 30.5 PG (26-34); Mean Corpuscular Volume 87.6 fL (80-100); Monocytes Absolute Auto 600 /uL (0-900); Monocytes Percent Auto 10.7 % (3-14); Neutrophils Absolute Auto 3100 /uL (1500-7000); Neutrophils Percent Auto 58.1 % (50-75); Platelet Count 188 X10^3/uL (150-400); Red Blood Cell Count 4.99 X10^6/uL (4.5-5.9); Red Cell Distribution Width 13.8 % (11.6-14.8); White Blood Cell Count 5.3 X10^3/uL (4.5-11.0)
[2022-01-29 09:59] LABS: Hemoglobin A1C% w Est Avg Glu 6.1 % (4.0-6.0)
[2022-01-29 10:43] LABS: Alanine Aminotransferase 17 IU/L (<50); Albumin 4.1 g/dL (3.5-5.0); Albumin Globulin Ratio 2.1 (1.0-2.8); Alkaline Phosphatase 61 U/L (38-126); Aspartate Aminotransferase 22 IU/L (17-59); BUN Creatinine Ratio 12.1 (6-22); Bilirubin Total 0.6 mg/dL (0.2-1.3); Blood Urea Nitrogen 13 mg/dL (9-20); Calcium 8.9 mg/dL (8.4-10.2); Carbon Dioxide 24 mmol/L (22-32); Chloride 106 mmol/L (98-107); Cholesterol 110 mg/dL (140-199); Estimated Glomerular Filt Rate > 60.0 mL/min (>60); Glucose 120 mg/dL (80-110); HDL Cholesterol 36 mg/dL (40-60); HEMOLYSIS < 15 (0-50); LDL Cholesterol Calculated 44 mg/dL (<100); Sodium 139 mmol/L (137-145); Total Protein 6.1 g/dL (6.3-8.2); Triglycerides 149 mg/dL (35-150)
[2022-01-29 10:47] LABS: Protein (Total) Urine Random 10 mg/dL (0-12); Protein Creatinine Ratio Urine 0.05 GRAM/24H
[2022-01-29 11:07] LABS: Prostate Specific Antigen Scrn 0.787 ng/mL (0.1-4.0)
== END ==
PROVIDERS: PCP Internal Medicine; Referring Provider Internal Medicine; Visit Provider Internal Medicine
DX: E78.5 Hyperlipidemia, unspecified (principal); E11.69 Type 2 diabetes mellitus with other specified complication; Z12.5 Encounter for screening for malignant neoplasm of prostate; E11.29 Type 2 diabetes mellitus with other diabetic kidney complication; R80.9 Proteinuria, unspecified; I10 Essential (primary) hypertension; I48.0 Paroxysmal atrial fibrillation
CPT/HCPCS: 36415; 80053; 80061; 82570; 83036; 84156; 85025; G0103